=== PATIENT | female | born 1995 | race African-American/Black ===

== ENCOUNTER 2017-07-19 09:23 | Observation (INO) | payer OTHER, MEDICAID ==
[~2017-07-19] VITALS: Ht 157.5 cm; Wt 98.9 kg
[2017-07-19 10:02] VITALS: BP 113/79
[2017-07-19] MEDS ORDERED: PREN-96 PO (13:08)
[2017-07-19] MEDS ORDERED: CEPH250C PO (13:09)
== END 2017-07-19 12:10 | disposition home or self-care (01) | DRG 781 ==
LOC: ER 09:23 → LDRP 09:24 → ER 10:58 → LDRP 10:59
PROVIDERS: ADMIT Specialist; ATTEND Specialist
DX: O26.892 Other specified pregnancy related conditions, second trimester (principal); J45.909 Unspecified asthma, uncomplicated; R10.9 Unspecified abdominal pain; Z3A.20 20 weeks gestation of pregnancy; O23.42 Unspecified infection of urinary tract in pregnancy, second trimester
CPT/HCPCS: 59025; 81002; 99285; G0378